=== PATIENT | male | born 1985 | race African-American/Black ===

== ENCOUNTER 2024-11-20 16:42 | Emergency (ER) | payer MEDICAID ==
[~2024-11-20] VITALS: Ht 167.6 cm; Wt 76.8 kg
[2024-11-20 16:45] VITALS: TEMP 97.9
[2024-11-20] MEDS ORDERED: ACET-3385 PO (16:53)
[2024-11-20] MEDS ORDERED: IBUP-1492 PO ×2 (16:54→19:49)
[2024-11-20 17:57] LABS: PLATELET COUNT (AUTO) 280 K/uL (150-450); RED BLOOD CELL COUNT(AUTO) 4.91 MIL/uL (4.50-5.90); RED CELL DISTRIBUTION WIDTH 13.9 % (11.5-14.5); WHITE BLOOD COUNT (AUTO) 8.0 K/uL (4.5-11.0)
[2024-11-20 18:06] LABS: CALCIUM, TOTAL 9.0 mg/dL (8.8-10.5); CREATININE 0.96 mg/dL (0.60-1.30); GLOMERULAR FILTR. RATE CALC > 60 mL/min (>60); GLUCOSE,RANDOM 89 mg/dL (70-110); SODIUM SERUM 139 mmol/L (136-145); UREA NITROGEN, BLOOD 11 mg/dL (7-18)
[2024-11-20 18:09] LABS: TROPONIN I-HIGH SENSITIVITY 5 ng/L (<76)
[2024-11-20] MEDS: KETOROLAC TROMETHAMINE 30 MG/ML VIAL IM ONE (18:23)
[2024-11-20] MEDS: ONDANSETRON 4 MG TABLET PO ONE (18:23)
[2024-11-20 20:30] VITALS: BP 130/86; PULSE 70; RESP 18; O2SAT 98
== END 2024-11-20 20:37 | disposition home or self-care (01) ==
LOC: EMS 16:42
DX: G43.909 Migraine, unspecified, not intractable, without status migrainosus (principal); S06.0XAA Concussion with loss of consciousness status unknown, initial encounter; F17.210 Nicotine dependence, cigarettes, uncomplicated; Z79.899 Other long term (current) drug therapy; V29.99XA Rider (driver) (passenger) of other motorcycle injured in unspecified traffic accident, initial encounter; Y93.89 Activity, other specified; Y92.89 Other specified places as the place of occurrence of the external cause; Y99.8 Other external cause status
CPT/HCPCS: 99285; 70450; 71045; 80048; 84484; 85025; 36415; 93005; 96372; J1885; Q0162